=== PATIENT | female | born 1985 | race Caucasian/White ===

== ENCOUNTER → 2018-08-23 10:56 | Outpatient (CLI) | payer OTHER, SELFPAY ==
[2018-08-28 08:44] LABS: HPV Reflexed? NOT INDICATED
== END ==
PROVIDERS: Visit Provider Obstetrics & Gynecology
DX: Z12.4 Encounter for screening for malignant neoplasm of cervix (principal)
CPT/HCPCS: 88175; G0145

== ENCOUNTER → 2021-10-22 13:59 | Outpatient (CLI) | payer OTHER, SELFPAY ==
[2021-10-22 15:34] LABS: Thyroid Stim Hormone (TSH) 1.21 uIU/mL (0.358-3.74)
[2021-10-30 12:51] LABS: HPV APTIMA, High Risk Negative (Negative)
== END ==
PROVIDERS: Visit Provider Student in an Organized Health Care Education/Training Program
DX: Z13.29 Encounter for screening for other suspected endocrine disorder (principal)
CPT/HCPCS: 36415; 84443; 87624; 88175; G0145